=== PATIENT | female | born 1975 | race Caucasian/White ===

== ENCOUNTER 2017-01-03 21:10 | Emergency (ER) | payer OTHER ==
[2017-01-03 22:36] LABS: PH,URINE 6.5 (5.0-8.0); URINE BILIRUBIN NEGATIVE (NEGATIVE); URINE BLOOD 3+ (NEGATIVE); URINE GLUCOSE (UA) NEGATIVE (NEGATIVE); URINE LEUKOCYTE ESTERASE NEGATIVE (NEGATIVE); URINE NITRITE NEGATIVE (NEGATIVE); URINE PROTEIN NEGATIVE (NEGATIVE); URINE UROBILINOGEN NORMAL (0-1 mg/dl)
[2017-01-03 22:39] LABS: URINE APPEARANCE CLEAR; URINE COLOR YELLOW
[2017-01-03 22:53] LABS: URINE EPITHELIAL CELLS 0-2 /hpf; URINE RBC 0-2 /hpf; URINE WBC 0-2 /hpf
[2017-01-03 22:54] LABS: URINE BACTERIA RARE
[2017-01-03] MEDS ORDERED: RHOGAM 300 MCG SYRINGE ONE (23:42)
--- NOTE | 2017-01-04 09:29 | US ---
OB TRANSVAGINAL, OB COMP <14 WKS CLINICAL HISTORY: In vitro fertilization transfer 12/11/2016. First trimester spotting. GWEN 08/29/2017. MGA 6 weeks 0 days. COMPARISON: None TECHNIQUE: Transabdominal and transvaginal. FINDINGS: Uterus: In the fundus, rim calcified mass, 5.6 x 4.9 x 5.5 cm. Intrauterine gestational sac. Gestational sac size and shape: Normal size and shape. Mean sac diameter: 1.3 cm = 5 weeks 3 days. [place] rump length: 0.5 cm = 6 weeks 2 days. Estimated date of confinement: 08/30/2017 Embryo: Yes Yolks sac: Yes heart tones: Yes 126 Beats per minute Somatic motion: Absent Placenta: Too early to comment. Previa: Too early comment. Chrissie-gestational bleed: None. Right ovary: Not visualized. Left ovary: Not visualized. Impression: 1. Live intrauterine gestation. Estimated gestational age 6 weeks 2 days. 2. No perigestational bleed. 3. In the fundus of the uterus, 5.6 x 4.9 x 5.5 cm fibroid. 4. Nonvisualization of the ovaries. Preliminary report by [facility] radiologist Alec Lehman MD 01/04/2017 at 00:04
== END 2017-01-04 00:36 | disposition home or self-care (01) ==
LOC: ED 21:10
DX: O20.0 Threatened abortion (principal); O09.521 Supervision of elderly multigravida, first trimester; Z3A.01 Less than 8 weeks gestation of pregnancy
CPT/HCPCS: 84702; 81001; 76817; 76801; 99283 ×2; 96372; 36415; J2790